=== PATIENT | male | born 2000 | race Caucasian/White ===

== ENCOUNTER 2024-11-25 13:12 | Emergency (ER) | payer OTHER, SELFPAY ==
--- NOTE | ~2024-11-25 | XR_ITS ---
EXAMINATION: XR hand LT min 3V, 11/25/2024 13:45 CDT HISTORY: LACERATION TO DISTAL METACARPALS COMPARISON: No comparisons available. Findings: No acute fracture or malalignment. No significant degenerative changes. Soft tissues unremarkable. Impression: No acute fracture or malalignment. Reviewed, dictated and finalized at location A. Impression: No acute fracture or malalignment.
[2024-11-25 13:20] VITALS: BP 113/55; PULSE 84; RESP 18; TEMP 37.1; O2SAT 100
--- NOTE | 2024-11-25 14:28 | ED_ITS ---
HPI - Wound/Laceration General Chief Complaint: Wound/Laceration Stated Complaint: laceration Time Seen by Provider: 11/25/24 13:35 Source: patient Mode of arrival: ambulatory Limitations: no limitations History of Present Illness HPI narrative: Right hand dominant male presents with left hand injury today. He got it caught in a garage door. He sustained a laceration. Denies loss of feeling / paresthesias. His tetanus is UTD. Rates pain as 4/10 in severity. Took no meds prior to arrival. Related Data Allergies Allergy/AdvReac Type Severity Reaction Status Date / Time No Known Allergies Allergy Mild Verified 11/25/24 13:23 PMFSH Past Medical History Medical History Right hand dominant Social History Social History Occupation/Education: occupation Exam Narrative: GENERAL: Well-appearing, well-nourished, and in no acute distress. HEAD: Normocephalic, atraumatic. EYES: Non injected, non icteric ENT: Nares clear, no rhinorrhea or epistaxis. Gross auditory acuity intact. NECK: Supple. No meningismus. CHEST: Speaking in full sentences. No respiratory distress. HEART: Regular rate and rhythm. 2+ radial pulse and brisk capillary refill in affected digits. ABDOMEN: Soft, nondistended. EXTREMITIES: Normal range of motion. Able to show flexion and extension of digits. Mild edema. SKIN: Warm, dry. 1cm skin tear overlying 4th MCP superficial and 2.5cm total L shaped laceration between digits 2 and 3, mild web space involvement. Also superficial abrasion with skin tear overlying second digit. NEURO: No focal deficits. Alert and oriented. Answering questions. Following commands. Normal speech without aphasia or dysarthria. Sensation intact to touch throughout hand and digits. PSYCH: Normal mood and affect. Course Vital Signs Vital signs: Vital Signs Temperature 98.8 F 11/25/24 13:20 Pulse Rate 84 11/25/24 13:20 Respiratory Rate 18 11/25/24 13:20 Blood Pressure 113/55 L 11/25/24 13:20 Pulse Oximetry 100 11/25/24 13:20 Oxygen Delivery Room Air 11/25/24 13:20 Temperature 98.8 F 11/25/24 13:20 Pulse Rate 84 11/25/24 13:20 Respiratory Rate 18 11/25/24 13:20 Blood Pressure 113/55 L 11/25/24 13:20 Pulse Oximetry 100 11/25/24 13:20 Oxygen Delivery Room Air 11/25/24 13:20 Procedures Laceration Laceration 1: Date: 11/25/24 Time: 15:30 Site: hand Side (If applicable): left Size (cm): 2.5 Description: other (L-shaped curvilinear) Depth: simple, single layer Local Anesthetic: lidocaine 1% Amount of anesthesia used (mL): 5 Pre-repair: wound explored and irrigated extensively ====== Skin Level ====== Skin layer closed with: nylon (Ethilon) Size (cm): 5-0 Number of sutures: 5 Technique: simple, interrupted ====== Subcutaneous Layer ====== ====== Muscle Layer ====== ====== Tendon Layer ====== Laceration 2: Date: 11/25/24 Time: 15:35 Site: hand Side (If applicable): left Size (cm): 1 Description: irregular Local Anesthetic: none ====== Skin Level ====== Skin layer closed with: dermabond ====== Subcutaneous Layer ====== ====== Muscle Layer ====== ====== Tendon Layer ====== MDM - Wound/Laceration MDM Narrative Medical decision making narrative: Right hand dominant male presents with left hand injury after getting it caught in garage door. In the emergency department he is afebrile with acceptable VS (low DBP but MAP >70). Neurovascularly intact. Provided PO pain medicine prior to local. Xray negative. Laceration repair(s) as above. Patient is educated on appropriate wound care and signs/symptoms of infection. Advised on course of removal. Provided Rx for OTC analgesic medications and provided referral contact information for a local PCP. Patient reports being UTD on tetanus so deferred. Differential Diagnosis Differential diagnosis: Likely laceration, abrasion, avulsion of skin and other (considered crush injury; fracture/dislocation) Imaging Data Radiologist's impression: Impression: No acute fracture or malalignment. Discharge Plan Discharge Clinical Impression: Laceration, Avulsion of skin Patient Disposition: Home Condition: Stable Instructions: Antibiotic Form, Care For Your Stitches (ED), Laceration (ED), Skin Avulsion (ED) Additional Instructions: Your stitches will need to be removed in 7-10 days. This can be done at an urgent care, at your primary care physician's, or by returning to the emergency department. If you do not have a primary care provider, the name of the doctors listed below. As we discussed, keep the area clean warm and dry. Warm soapy water is fine but make sure it is fully dry before applying a bandage. No need for further use of hydrogen peroxide and I recommend avoiding Neosporin however an alternative triple antibiotic and or petroleum jelly/Vaseline is fine. Return to the emergency department any new or worsening symptoms such as signs of infection like fever greater than 100.4? F, spreading redness/streaking up your arm. Or pus discharge. Acetaminophen/Tylenol (maximum 4000 mg per day) is safe to take with NSAIDs (ibuprofen/Motrin) for pain relief. Patient Language: Japanese Prescriptions: New acetaminophen 500 mg capsule 1,000 mg PO Q6H PRN (Reason: pain) Qty: 30 0RF ibuprofen 600 mg tablet 600 mg PO TID PRN (Reason: pain) Qty: 30 0RF Follow-up/Referrals: PHYSICIAN,VICE PRESIDENT TALENT MANAGEMENT [Primary Care Provider, Internal Medicine] Octaviano Fields MD [Physician, Family Practice] Stand Alone Forms: Work/School Release IP Time of Disposition: 16:02
--- OUTSIDE RECORDS SUMMARY | 2024-11-25 15:43 | XMS_ITS | Clinical Summary ---
Author Organization [facility] Address [address] [place] [address] Care Team Providers Care Blasting Cap Assembler Name Role Phone Eric Adilson Cornelius DO Primary Care Provider [phone] Allergies No known active allergies Medications multi vitamin/minerals tablet Take 1 tablet by mouth daily. Active Active Problems No known active problems Resolved Problems Problem Noted Date Diagnosed Date Resolved Date Health maintenance examination 03/18/2019 11/22/2019 Immunizations Immunization Administration Dates Next Due Dtap (Generic) 11/05/2007, 4,04/23/2002,02/21/2002, 2001 HPV GARDASIL 9-VALENT 08/21/2015 HPV4 (Gardasil) 10/14/2013,08/13/2013 Hepatitis A (Generic) 08/21/2015,08/13/2013 Hepatitis B (Generic Peds) 01/31/2003,02/21/2002 ,2001 Hib (Generic) 01/31/2003,02/21/2002,2001 MMR (Generic) 11/05/2007,11/12/2002 Menactra 08/13/2013 Pneumococcal Vaccine, Conjugate 01/31/2003,04/23,02/21/2002,2001 Polio Ipv (Generic) 11/05/2007,04/23/2002,2001,2001 Tdap (Generic) 08/13/2013 Social History Tobacco Use Types Packs/Day Years Used Date Smoking Tobacco: Never Smokeless Tobacco: Never Alcohol Use Standard Drinks/Week Comments Yes 0 (1 standard drink = 0.6 oz pur e alcohol) occas Sex and Gender Information Value Date Recorded Sex Assigned at Not on file 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 Gender Identity Not on file Sexual Orientation Not on file Last Filed Vital Signs Vital Sign Reading Time Taken Comments Blood Pressure 126/77 06/23/2023 10:38 PM CDT Pulse 69 06/23/2023 10:38 PM CDT Temperature 37.3 C (99.2 F) 06/23/2023 10:38 PM CDT Respiratory Rate 18 06/23/2023 10:38 PM CDT Oxygen Saturation 100% 06/23/2023 10:38 PM CDT Inhaled Oxygen Concentration - - Weight 67.1 kg (148 lb) 06/23/2023 9:28 PM CDT Height 175.3 cm (5' 9) 06/23/2023 9:28 PM CDT Body Mass Index 21.86 06/23/2023 9:28 PM CDT Plan of Treatment Health Maintenance Due Date Last Done Comments Meningococcal B Vaccine (1 of 2 - Standard) 2017 Hepatitis C 10/22/2019 Annual Physical 03/18/2020 03/18/2019 DTaP, Tdap and Td Vaccines (7 - Td or Tdap) 08/14/2023 08/13/2013, 11/05/2007, 10/30/2003, Additional history exists COVID-19 Vaccine ( season) 2024 Hepatitis B Vaccines Completed 01/31/2003, 02/21/2002, 2001 Pneumococcal Vaccine: Pediatrics (0 to 5 Years) and At-Risk Patients (6 to 49 Years) Aged Out 01/31/2003, 04/23/2002, 02/21/2002, Additional history exists No longer eligible based on patient's age to complete this topic HPV Vaccines Completed 08/21/2015, 0806/2013, 08/13/2013 Meningococcal Vaccine Completed 12/20/2019, 014 RSV Immunizations Under 20 Months Aged Out No longer eligible based on patient's age to complete this topic Insurance Care Teams Blasting Cap Assembler Relationship Specialty Start Date End Date Adilson Reyes DO PCP - General FAMILY PRACTICE 01/29/19
--- OUTSIDE RECORDS SUMMARY | 2024-11-25 15:43 | XMS_ITS | Clinical Summary ---
Author Organization [facility] Address [address] [place] [address] Care Team Providers Care It Service Manager Name Role Phone Unavailable Primary Care Provider Unavailabl e Source Comments [facility],non-owned Affiliates and Associated Physician Practices is amultiple site organization consisting of ambulatory clinics and hospital sitesin [place], [place], [place] and [place]. This disclosure is being madepursuant to the Care Everywhere program and may not contain all information available regarding this patient. Last updated 17.[facility] Immunizations Immunization Administration Dates Next Due MENINGOCOCCAL ACWY (MCV4P) VAC IM 12/20/2019 Social History Tobacco Use Types Packs/Day Years Used Date Smoking Tobacco: Never Assessed Sex and Gender Information Value Date Recorded Sex Assigned at Not on file Legal Sex Male 2:03 PM CDT Gender Identity Not on file Sexual Orientation Not on file Plan of Treatment Health Maintenance Due Date Last Done Comments HIV SCREENING 2016 HPV VACCINE (1 - Male 3-dose series) 2016 MENINGOCOCCAL (Group B) VACC INE SHARED DECISION-MAKING (1 of 2 - Standard) 2017 HEPATITIS C SCREENING 10/17/2019 DTAP/TDAP/TD VACCINES (1 - Tdap) 2020 HEPATITIS B VACCINE (1 of 3 - 19+ 3-dose series) 2020 DEPRESSION SCREENING 03/13/2024 COVID-19 VACCINE (1 - 2023-2 5 season) 2024 INFLUENZA VACCINE (#1) 2024 ZOSTER VACCINE (1 of 2) 10/22/2051 MENINGOCOCCAL GROUPS A/C/Y/W VACCINE Completed 12/20/2019 HIB VACCINE Aged Out No longer eligi ble based on patient's age to complete this topic PNEUMOCOCCAL VACCINE Aged Out No long er eligible based on patient's age to complete this topic [place] [address] [place] [address]
[2024-11-25] MEDS: ACETAMINOPHEN 500 MG TABLET 1000 MG PO (15:53)
--- OUTSIDE RECORDS SUMMARY | 2024-11-25 16:23 | XMS_ITS | Clinical Summary ---
Author Organization [facility] Address [address] [place] [address] Care Team Providers Care Spanish Literature Professor Name Role Phone Unavailable Primary Care Provider Unavailabl e Source Comments [facility],non-owned Affiliates and Associated Physician Practices is amultiple site organization consisting of ambulatory clinics and hospital sitesin [place], [place], [place] and [place]. This disclosure is being madepursuant to the Care Everywhere program and may not contain all information available regarding this patient. Last updated 17.[facility] [place] Immunizations Immunization Administration Dates Next Due MENINGOCOCCAL [...] patient's age to complete this topic [place] [address] [place] [address]
--- OUTSIDE RECORDS SUMMARY | 2024-11-25 16:23 | XMS_ITS | Clinical Summary ---
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
== END 2024-11-25 16:09 | disposition home or self-care (01) ==
PROVIDERS: Emergency Provider Student in an Organized Health Care Education/Training Program
DX: S61.412A Laceration without foreign body of left hand, initial encounter (principal); W45.8XXA Other foreign body or object entering through skin, initial encounter
CPT/HCPCS: 12002; 73130; 99283; A9270